=== PATIENT | female | born 1950 | race Caucasian/White ===

== ENCOUNTER 2024-06-30 09:10 | Outpatient (AMB) | payer MEDICARE, SELFPAY ==
--- NOTE | 2024-06-30 09:11 | A.SPINEOV_ITS ---
Vital Signs 06/30/24 09:20 Height 5 ft 4 in Weight 185 lb BMI 31.8 Intake Visit Reasons: bulging disc/trouble walking Intake Note: Ms. Valdes is here today c/o Lower back pain making it difficult to walk. Washer Machine Required: No Allergies No Known Allergies Allergy (Verified 06/30/24 09:20) Physical Exam Vital Signs: BMI result Body Mass Index 31.8 Assessment & Plan Assessment & Plan (1) Abnormality of gait: Code(s): R26.9 - Unspecified abnormalities of gait and mobility Category: Medical Plan: Dear colleague Thank you for referring Barbara Valdes for 2nd opinion to the office today with a chief complaint of abnormal gait. HPI: This 73-year-old female initially had an episode of back pain and radiating pain down her right leg to his big toe that was addressed with an epidural steroid injection. Her main complaint is she can not walk. On further questioning, the limitation of walking is caused by a gait disturbance. She has a balance problems and needs to hold onto corona otherwise she would fall. With a cane she is able to walk. When she goes upstairs she has to hold onto both rales. She denies weakness or numbness. She saw Dr. Ravi from [facility] who apparently offered her a lumbar fusion surgery. Physical therapy and chiropractic therapy have helped the pain but the abnormal balance remains. PMH: Hypertension, asthma, cholecystectomy, lumpectomy Medications: Verapamil, pravastatin, bupropion, lamotrigine, Valsertan Allergies: NKDA Social history: Lives alone. Her mother recently . Nonsmoker Physical Exam: Pleasant female. Her gait is abnormal. She has a Trendelenburg on the right side, a wide-based gait with a spastic component. Without a cane the patient needs to hold down to the wall otherwise she would fall. No motor deficits. No sensory deficits. I did notice bilateral Wilson reflexes. Radiological Studies: MRI done at [place] shows mild lumbar degenerative changes. There is severe bilateral L5 foraminal stenosis. A standing lumbar x- ray with flexion-extension shows a L4-5 spondylolisthesis that seems to advance with flexion. Impression/Plan: This 73-year-old female presents with abnormal gait that I can not explain from the lumbar spine. She did have an L5 radiculopathy in the past that was addressed with an epidural steroid injection. She denies back pain. At this time I do not see an indication for a lumbar surgery as proposed by the other surgeon. She needs further workup to get to the bottom of the normal gait. I am going to order an MRI of the cervical spine as she did display pathological reflexes on exam and in combination with the gait abnormality I would like to see if she suffering from spinal cord compression. The patient will call for another appointment when the MRI is done. Thank you for allowing me to participate in your patients care. total time spent was 50 minutes in counseling ,coordination of plan, personal review of imaging, surgical decision making and subsequent plan Jaiden Fonseca MD, PhD Spine Fellowship Trained Neurosurgeon Director, [facility] Orders: Orders MR cervical spine wo con Today R26.9 - Unspecified abnormalities of gait and mobility Coding Level of Care Code New Pt Level 4 (56773) Diagnoses Abnormality of gait R26.9
[2024-06-30 09:20] VITALS: BMI 31.8
== END 2024-06-30 10:12 | disposition home or self-care (01) ==
PROVIDERS: PCP Internal Medicine; Visit Provider Neurological Surgery
DX: R26.9 Unspecified abnormalities of gait and mobility (principal)
CPT/HCPCS: 99204

== ENCOUNTER → 2024-06-30 09:10 | Outpatient (BNVA) | payer MEDICARE, SELFPAY | PROVIDERS: PCP Internal Medicine; Visit Provider Neurological Surgery | DX: M54.50 Low back pain, unspecified (principal); R26.9 Unspecified abnormalities of gait and mobility | CPT/HCPCS: 99202 ==

== ENCOUNTER → 2024-07-23 09:42 | Outpatient (BNV) | payer MEDICARE, SELFPAY | PROVIDERS: PCP Internal Medicine; Visit Provider Radiology Diagnostic Radiology | DX: R26.9 Unspecified abnormalities of gait and mobility (principal) | CPT/HCPCS: 72141 ==

== ENCOUNTER 2024-07-23 09:54 | Outpatient (REF) | payer MEDICARE, SELFPAY | END 2024-07-23 09:55 | disposition home or self-care (01) | LOC: HO.MRI 09:54 | PROVIDERS: PCP Internal Medicine; Visit Provider Neurological Surgery | DX: R26.9 Unspecified abnormalities of gait and mobility (principal) | CPT/HCPCS: 72141 ==

== ENCOUNTER 2025-04-27 14:33 | Outpatient (AMB) | payer MEDICARE, SELFPAY ==
--- NOTE | 2025-04-27 15:10 | HO.SPINEOV ---
Intake Visit Reasons: worsening lower back pain Intake Note: Ms. Valdes is here today c/o worsening lower back pain. Innersole Fitter Required: No Allergies No Known Allergies Allergy (Verified 04/27/25 15:11) Assessment & Plan Assessment & Plan (1) Neuroforaminal stenosis of lumbar spine: Code(s): M48.061 - Spinal stenosis, lumbar region without neurogenic claudication Category: Medical Plan Dear colleague, On 04/27/2025, I saw for follow-up Barbara Valdes. As you know, she initially suffered a lumbar radiculopathy radiating an L5 dermatome responded well to an epidural steroid injection. She comes back complaining that her walking pattern is further regressing. She is now using a cane to stabilize her. It is not a balance issue but the weakness of the right buttock muscles. On exam, she has a positive Trendelenburg on the right side, which I also documented in the previous visit. The MRI shows severe bilateral L5 foraminal stenosis. I discussed with the patient that the Trendelenburg is related to the L5 nerve root compression due to foraminal stenosis. She denies radicular pain. Normally, I would not offer an L5 foraminotomy in the absence of pain but in this case she states that the Trendelenburg, in other words muscle weakness, is progressing and therefore I did offer her an a right L5 foraminotomy in an attempt to stabilize the weakness. I described the procedure and expected postoperative outcome. She is aware that there is a remote chance that the surgery will produce pain. She wants to proceed. She is scheduled for 06/14/2025. She has annual visits at pulmonology [facility] for asthma. I spent 30 minutes in his consult to discuss the diagnosis, proposed surgery and possible outcome. Jaiden Fonseca MD, PhD Spine Fellowship Trained Neurosurgeon Director, [facility] Coding Level of Care Code Est Pt Level 4 (66376) Diagnoses Neuroforaminal stenosis of lumbar spine M48.061
== END 2025-04-27 16:25 | disposition home or self-care (01) ==
LOC: HO.HNS 14:33
PROVIDERS: PCP Internal Medicine; Visit Provider Neurological Surgery
DX: M48.061 Spinal stenosis, lumbar region without neurogenic claudication (principal)
CPT/HCPCS: 99214

== ENCOUNTER → 2025-04-27 14:33 | Outpatient (BNVA) | payer MEDICARE, SELFPAY | PROVIDERS: PCP Internal Medicine; Visit Provider Neurological Surgery | DX: M48.061 Spinal stenosis, lumbar region without neurogenic claudication (principal) | CPT/HCPCS: 99212 ==

== ENCOUNTER 2025-05-31 | Outpatient (REF) | payer MEDICARE, SELFPAY ==
--- NOTE | 2025-05-31 | ECG_ITS ---
Test Reason : preop Blood Pressure : */* mmHG Vent. Rate : 60 BPM Atrial Rate : 60 BPM P-R Int : 178 ms QRS Dur : 80 ms QT Int : 408 ms P-R-T Axes : 42 0 8 degrees QTcB Int : 408 ms Normal sinus rhythm Normal ECG No previous ECGs available Referred By: Paola Johnson Electronically Signed By: Juan F Stuart
[2025-05-31 12:37] VITALS: BP 174/87; PULSE 62; RESP 17; O2SAT 99; BMI 32.4
--- NOTE | 2025-05-31 12:56 | HO.ANESPROP2 ---
HPI - Anesthesia Eval Consult details Narrative: Pending BP optimization with PCP 74yo F for Right Right L5 Foraminotomy, 06/14/25 No recent illness No CP/SOB with walking dog multiple times daily HTN: elevated at PAT - better at outside MD appointments. Pt reports chronic headache. Will check BP at home daily until Wednesday and will report results. 06/04/25 pt reports BP's remain elevated, pt contacted own PCP that recommended ER evaluation. PCP eval post-ER deems BP NOT optimized for surgery. GERD: Controlled on ppi Hx murmur: asymptomatic and dx'd >10 years ago Asthma: symbicort BID, albuterol rescue only with winter season Hx right mastectomy - ok to use for BP/IV PMFSH Active Problems Active Problems: All Active Problems Neuroforaminal stenosis of lumbar spine (Acute) Abnormality of gait (Acute) Past Medical History Medical History (Updated 05/31/25 @ 12:26 by Meseret Merritt RN) Hx of radiation therapy Arthritis GERD (gastroesophageal reflux disease) Sleep apnea Murmur Trochanteric bursitis PAC (premature atrial contraction) Migraine Lumbar radiculopathy HTN (hypertension) Elevated cholesterol Urticaria due to cold Depression Cervical spondylosis Breast cancer Bronchitis Asthma Family History Family history of problems with anesthesia: Yes (Mom with post-op delerium) Surgical History Surgical History (Updated 05/31/25 @ 12:28 by Meseret Merritt RN) Hx of bilateral cataract extraction Hx of thumb surgery Hx of cholecystectomy H/O colonoscopy History of esophagogastroduodenoscopy (EGD) Hx of mastectomy History of Problems with Anesthesia: No Social History Social History Are you a primary career development facilitator to a significant other at home: No Do you presently have visiting nurse or other home services: No Patient Tobacco Use Status: Never used Tobacco Use of substances other than those prescribed or required for medical reasons: No Have you been hit, kicked, punched, or otherwise hurt by someone within the past year? If so, by whom?: No Are you DNR?: No Advance Directives: No Advance Directives Information Provided: No Advance Directives on File: No Patient : No : No Poor oral hygiene: Yes Meds Allergies Allergy/AdvReac Type Severity Reaction Status Date / Time acetaminophen (From Percocet) Allergy Itching Verified 05/30/25 11:58 oxycodone (From OxyContin) Allergy Itching Verified 05/30/25 11:58 Penicillins Allergy Itching Verified 05/30/25 11:58 Home Medications ?Medication ?Instructions ?Recorded ?Confirmed ?Last Taken ?Type bupropion HCl 300 mg 24 hr tablet, 300 mg PO DAILY 06/30/24 05/31/25 Unknown History extended release lamotrigine 150 mg tablet 150 mg PO DAILY 06/30/24 05/31/25 Unknown History pravastatin 40 mg tablet 40 mg PO BEDTIME 06/30/24 05/31/25 Unknown History valsartan 320 mg tablet 320 mg PO DAILY 06/30/24 05/31/25 Unknown History verapamil 240 mg tablet,extended 240 mg PO BEDTIME 06/30/24 05/31/25 Unknown History release budesonide-formoterol HFA 160 2 puff inhalation BID 05/30/25 05/31/25 Unknown History mcg-4.5 mcg/actuation aerosol inhaler (Symbicort) esomeprazole magnesium 20 mg 20 mg PO DAILY 05/30/25 05/31/25 Unknown History capsule,delayed release (Nexium) fluticasone propionate 50 2 spray intranasal DAILY PRN 05/30/25 05/31/25 Unknown History mcg/actuation nasal Allergy Symptoms spray,suspension montelukast 10 mg tablet 10 mg PO QPM 05/30/25 05/30/25 Unknown History propranolol 20 mg tablet 20 mg PO BID 05/30/25 05/31/25 Unknown History albuterol sulfate 90 mcg/actuation 2 puff inhalation Q4H PRN wheezing 05/31/25 05/31/25 Unknown History aerosol inhaler fexofenadine 180 mg tablet 180 mg PO DAILY 05/31/25 05/31/25 Unknown History ibuprofen 200 mg tablet 400 mg PO Q8H PRN Headache 05/31/25 05/31/25 Unknown History Exam Height,Weight and Vital Signs: Height 5 ft 4 in Weight 85.729 kg Last Vital Signs Pulse 62 05/31/25 12:37 Resp 17 05/31/25 12:37 BP 174/87 H 05/31/25 12:37 Pulse Ox 99 05/31/25 12:37 O2 Del Method Room Air 05/31/25 12:37 Pertinent Lab Results Pertinent Lab Results: Lab Results 05/31/25 Range/Units 13:20 WBC 8.7 (4.8-10.8) X10*3/uL RBC 4.24 (4.20-5.50) X10*6/uL Hgb 12.8 (12.0-16.0) g/dl Hct 39.6 (37.0-47.0) % MCV 93.4 (80.0-98.0) fL MCH 30.2 (27.0-33.0) pg MCHC 32.3 (31.0-35.0) g/dl RDW 14.2 (11.0-16.0) % Plt Count 277 (160-400) X10*3/uL MPV 9.9 (9.4-12.3) fL Absolute Nucleated RBC 0.000 (0.0-0.012) X10*3/uL Nucleated RBC % (auto) 0.0 (0.0-0.2) /100WBC Sodium 142 (135-145) mmol/L Potassium 3.9 (3.3-5.1) mmol/L Chloride 108 (96-108) mmol/L Carbon Dioxide 26 (22-29) mmol/L Anion Gap 12 (12-20) BUN 20 H (9-16) mg/dL Creatinine 0.93 (0.5-1.4) mg/dL Estim Creat Clear Calc 57.9 Estimated GFR 59 Random Glucose 85 (60-115) mg/dL Calcium 9.2 (8.4-10.2) mg/dL Narrative Narrative: EKG 05/2025 Vent. Rate : 60 BPM Atrial Rate : 60 BPM P-R Int : 178 ms QRS Dur : 80 ms QT Int : 408 ms P-R-T Axes : 42 0 8 degrees QTcB Int : 408 ms Normal sinus rhythm Normal ECG No previous ECGs available Airway Mallampati Class: II TM Dist: >3cm Neck ROM: Full Loose/Missing/Broken Teeth: Yes (Molars missing) Heart: RRR Lungs: CTAB Assessment and Plan Assessment Anesthesia Assessment: Anesthesia Plan Discussed and PAT Visit Final Anesthetic Review Family History of Problems with Anesthesia: Yes (Mom with post-op delerium) History of Problems with Anesthesia: No
[2025-05-31 13:54] LABS: Hematocrit 39.6 % (37.0-47.0); Hemoglobin 12.8 g/dl (12.0-16.0); Mean Corpuscular HGB Conc 32.3 g/dl (31.0-35.0); Mean Corpuscular Hemoglobin 30.2 pg (27.0-33.0); Mean Corpuscular Volume 93.4 fL (80.0-98.0); NRBC Abs Auto 0.000 X10*3/uL (0.0-0.012); NRBC Pct Auto 0.0 /100WBC (0.0-0.2); Platelet Count 277 X10*3/uL (160-400); Red Blood Count 4.24 X10*6/uL (4.20-5.50); White Blood Count 8.7 X10*3/uL (4.8-10.8)
[2025-05-31 14:23] LABS: Anion Gap 12 (12-20); Blood Urea Nitrogen 20 mg/dL (9-16); Calcium 9.2 mg/dL (8.4-10.2); Carbon Dioxide 26 mmol/L (22-29); Chloride 108 mmol/L (96-108); Creatinine Clr Calc Pharmacy 57.9; Estimated Glomerular Filt Rate 59; Potassium 3.9 mmol/L (3.3-5.1); Sodium 142 mmol/L (135-145)
--- NOTE | 2025-06-12 16:21 | PM.DS ---
DS: Providers Provider Date of Service: 06/14/25 Date of discharge: 06/14/25 Primary care physician: Pete Gonzalez MD Admitting clinician: Jaiden Fonseca DS: Diagnosis Discharge Diagnosis (1) Neuroforaminal stenosis of lumbar spine: Status: Acute Physical Exam Vital Signs: Vital Signs: Last Vital Signs Pulse 62 05/31/25 12:37 Resp 17 05/31/25 12:37 BP 174/87 H 05/31/25 12:37 Pulse Ox 99 05/31/25 12:37 O2 Del Method Room Air 05/31/25 12:37 BMI result Body Mass Index 32.4 Discharge Plan Discharge Patient Disposition: Home, Self-Care Referrals: Pete Gonzalez MD [Primary Care Provider, Medical] - 1 Week Discharge Medications: Continued montelukast 10 mg tablet 10 mg PO QPM propranolol 20 mg tablet 20 mg PO BID fluticasone propionate 50 mcg/actuation spray,suspension 2 spray intranasal DAILY PRN (Reason: Allergy Symptoms) esomeprazole magnesium [Nexium] 20 mg Capsule,Delayed Release(Dr/Ec) 20 mg PO DAILY budesonide-formoterol [Symbicort] 160-4.5 mcg/actuation Hfa Aerosol Inhaler 2 puff INHALATION BID fexofenadine 180 mg Tablet 180 mg PO DAILY albuterol sulfate 90 mcg/actuation HFA aerosol inhaler 2 puff inhalation Q4H PRN (Reason: wheezing) ibuprofen 200 mg Tablet 400 mg PO Q8H PRN (Reason: Headache) verapamil 240 mg tablet extended release 240 mg PO BEDTIME pravastatin 40 mg tablet 40 mg PO BEDTIME bupropion HCl 300 mg tablet extended release 24 hr 300 mg PO DAILY lamotrigine 150 mg tablet 150 mg PO DAILY valsartan 320 mg tablet 320 mg PO DAILY Diet: Advance to usual diet Activity on Discharge: As tolerated Activity Restrictions/Additional Instructions: After your spinal surgery we ask you to observe the following restrictions/guidelines: Activity: It is normal to feel some discomfort as you increase your activity, but that will improve with time. We ask you avoid heavy lifting or acitivities that cause pain. As a general rule, 8lbs is a safe limit for lifting right after surgery. Walk as much as you feel comfortable but not to exhaustion. You will feel extra tired the first few days after surgery. Stay well hydrated. It is OK to walk up and down stairs You may return to driving when you are off narcotics (such as vicodin, oxycodone, dilaudid, etc), and you are back to normal functional capacity. If you have any concerns please check with office before driving. Return to work is specific to each patient and each surgery, so please speak with your doctor/PA at first follow up. Please bring paperwork such as FMLA at that time if you need it filled out. Medications: For optimum pain control, it is best to start with a combination of 500 mg of Tylenol every 4 hours with 600 mg of Motrin every 8 hours, and use narcotics as needed in between for breakthrough pain. We will give you a short supply of narcotics after surgery (usually one weeks worth). If you need more please call the office but do not use more than prescribed. You will need to give our office 48 hours notice if you need narcotics refilled and we do not fill narcotics on weekends or evenings. If you are on a narcotic, it is a good idea to take a stool softener such as colace or senna to avoid constipation If you take blood thinner such as aspirin, Plavix, Coumadin, Effient, Eliquis etc for conditions such as Afib, DVT, Pulmonary embolus, coronary disease, stents etc please speak with your surgeon about specific details as to when you can resume these medications. Follow up: Please call the office, , after surgery to arrange a 3 week follow up for wound check. Wound Care: You may remove your dressing on the first day after surgery. ?You may ?leave open to air. Please do not remove the steri strips underneath. they will fall off on their own in one week. IT IS NORMAL FOR THE WOUND TO OOZE OR BE BLOODY FOR A FEW DAYS AFTER SURGERY. ?IF THIS HAPPENS JUST PLACE NEW DRESSING OVER IT TO AVOID STAINING CLOTHES. You may shower on post op day # 1 We ask that you do not let the water soak the wound. If it does get wet, just towel dry lightly. Please do not scrub your incision or place any type of chemical/ointment on the wound. No tub baths, pools or jacuzzis for one month. If you have any leaking or redness from your wound, or fevers, please call office Print Language: [place] African
== END 2025-05-31 00:01 | disposition home or self-care (01) ==
LOC: HO.PAT
PROVIDERS: Nurse Practitioner; PCP Internal Medicine; Visit Provider Neurological Surgery
DX: Z01.810 Encounter for preprocedural cardiovascular examination (principal); I10 Essential (primary) hypertension; M48.061 Spinal stenosis, lumbar region without neurogenic claudication
CPT/HCPCS: 36415; 80048; 85027; 93005

== ENCOUNTER → 2025-05-31 13:27 | Outpatient (BNV) | payer MEDICARE, SELFPAY | PROVIDERS: PCP Internal Medicine; Visit Provider Internal Medicine Cardiovascular Disease | DX: I10 Essential (primary) hypertension (principal); Z01.810 Encounter for preprocedural cardiovascular examination | CPT/HCPCS: 93010 ==